=== PATIENT | male | born 1995 | race Caucasian/White ===

== ENCOUNTER 2019-11-16 22:14 | Emergency (ER) | payer BC ==
[2019-11-16 22:29] VITALS: RESP 18
[2019-11-16] MEDS ORDERED: FAMOTIDINE 20 MG/2 ML VIAL IV STA (22:52)
[2019-11-16] MEDS ORDERED: SODIUM CHLORIDE 0.9% 1,000 ML IV STA (22:52)
[2019-11-16] MEDS ORDERED: diphenhydrAMINE 50 MG/ML 1 ML VIAL IVP STA (22:52)
[2019-11-16] MEDS ORDERED: DEXAMETHASONE SOD PHOSPHATE 10 MG/ML 1 ML VIAL IV STA (22:52)
[2019-11-16] MEDS ORDERED: hydrOXYzine HCL 25 MG TAB PO STA (22:52)
--- NOTE | 2019-11-16 23:22 | ED ---
Allergic Reaction HPI - General Chief complaint: Allergic Reaction Stated complaint: Allergic Reaction Time Seen by Provider: 11/16/19 22:18 Source: patient, RN notes reviewed, old records reviewed Mode of arrival: ambulatory Limitations: no limitations - History of Present Illness Initial Comments: This is a 24-year-old male DF for evaluation patient Dese for evaluation regards to when he feels like maybe ALLERGIC reaction, patient has rash over body up both arms on his back on his chest with unknown exposure. Patient has felt a little feverish and warm but mainly his complaint is that shortness of breath his been going back to work and has had an significant work intolerance or exercise intolerance that he has noticed. Patient does even feel short of breath here sitting in his exam room. No medical history takes no medications nondrinker nonsmoker no significant sick contacts. No documented fevers per patient and no known travel history. MD Complaint: allergic reaction, other (Shortness of breath) -: days(s) Exposure: unknown Symptoms: rash (Bilateral arms chest and back), difficulty breathing (Patient does feel short of breath) Severity: mild Treatment Prior to Arrival: none, benadryl Previous Allergy History: none - Related Data Allergies Allergy/AdvReac Type Severity Reaction Status Date / Time No Known Allergies Allergy Verified 11/16/19 22:29 Review of Systems ROS Statement: Those systems with pertinent positive or pertinent negative responses have been documented in the HPI. ROS Other: All systems not noted in ROS Statement are negative. Past Medical History Past Medical History: No Reported History History of Any Multi-Drug Resistant Organisms: None Reported Past Surgical History: No Surgical Hx Reported Past Psychological History: No Psychological Hx Reported Smoking Status: Never smoker Past Alcohol Use History: None Reported Past Drug Use History: None Reported General Exam Limitations: no limitations General appearance: alert, in no apparent distress Head exam: Present: atraumatic, normocephalic, normal inspection Eye exam: Present: normal appearance, PERRL, EOMI. Absent: scleral icterus, conjunctival injection, periorbital swelling ENT exam: Present: normal exam, mucous membranes moist Neck exam: Present: normal inspection. Absent: tenderness, meningismus, lymphadenopathy Respiratory exam: Present: normal lung sounds bilaterally. Absent: respiratory distress, wheezes, rales, rhonchi, stridor Cardiovascular Exam: Present: regular rate, normal rhythm, normal heart sounds. Absent: systolic murmur, diastolic murmur, rubs, gallop, clicks GI/Abdominal exam: Present: soft, normal bowel sounds. Absent: distended, tenderness, guarding, rebound, rigid Extremities exam: Present: normal inspection, full ROM, normal capillary refill. Absent: tenderness, pedal edema, joint swelling, calf tenderness Back exam: Present: normal inspection Neurological exam: Present: alert, oriented X3, CN II-XII intact Psychiatric exam: Present: normal affect, normal mood Skin exam: Present: warm, dry, intact, normal color, other (Bilateral arm rash both anterior chest, rashes. pruritic). Absent: rash Course Vital Signs 11/16/19 11/16/19 11/16/19 22:23 22:28 23:37 Temperature 97.8 F 97.9 F Pulse Rate 77 68 Respiratory 18 18 18 Rate Blood Pressure 143/76 132/82 O2 Sat by Pulse 98 100 Oximetry - Reevaluation(s) Reevaluation #1: 11/16/19 23:22 Medical records reviewed Reevaluation #2: 11/16/19 23:22 Patient is showing symptomatic improvement Medical Decision Making - Medical Decision Making 24 male for ALLERGIC reaction for continued outpatient treatment with antihistamines, patient can be discharged home - Lab Data Result diagrams: 11/16/19 23:03 Lab Results 11/16/19 Range/Units 23:03 WBC 5.8 (3.8-10.6) k/uL RBC 5.42 (4.30-5.90) m/uL Hgb 15.7 (13.0-17.5) gm/dL Hct 46.9 (39.0-53.0) % MCV 86.6 (80.0-100.0) fL MCH 29.1 (25.0-35.0) pg MCHC 33.5 (31.0-37.0) g/dL RDW 11.7 (11.5-15.5) % Plt Count 187 (150-450) k/uL Neutrophils % 40 % Lymphocytes % 35 % Monocytes % 5 % Eosinophils % 15 % Basophils % 1 % Neutrophils # 2.3 (1.3-7.7) k/uL Lymphocytes # 2.1 (1.0-4.8) k/uL Monocytes # 0.3 (0-1.0) k/uL Eosinophils # 0.9 H (0-0.7) k/uL Basophils # 0.1 (0-0.2) k/uL - Radiology Data Radiology results: report reviewed (Chest x-ray is negative for acute disease), image reviewed Disposition Clinical Impression: Allergic reaction Disposition: HOME SELF-CARE Condition: Good Instructions (If sedation given, give patient instructions): Anaphylaxis (ED) Is patient prescribed a controlled substance at d/c from ED?: No Referrals: None,Stated [Primary Care Provider] - 1-2 days
[2019-11-16 23:29] LABS: Basophils # (A) 0.1 k/uL (0-0.2); Basophils % (A) 1 %; Eosinophils # (A) 0.9 k/uL (0-0.7); Eosinophils % (A) 15 %; HCT 46.9 % (39.0-53.0); HGB 15.7 gm/dL (13.0-17.5); Lymphocytes # (A) 2.1 k/uL (1.0-4.8); Lymphocytes % (A) 35 %; MCH 29.1 pg (25.0-35.0); MCHC 33.5 g/dL (31.0-37.0); MCV 86.6 fL (80.0-100.0); Mean Platelet Volume 7.6; Monocytes # (A) 0.3 k/uL (0-1.0); Monocytes % (A) 5 %; Neutrophils # (A) 2.3 k/uL (1.3-7.7); Neutrophils % (A) 40 %; Platelet Count 187 k/uL (150-450); RBC 5.42 m/uL (4.30-5.90); RDW 11.7 % (11.5-15.5); WBC 5.8 k/uL (3.8-10.6)
[2019-11-16 23:39] VITALS: BP 132/82; PULSE 68; TEMP 97.9
--- NOTE | 2019-11-16 23:41 | XR ---
EXAMINATION TYPE: XR chest 2V DATE OF EXAM: 11/16/2019 COMPARISON: NONE HISTORY: Chest pain TECHNIQUE: Frontal and lateral views of the chest are obtained. FINDINGS: There is no focal air space opacity. No evidence for pneumothorax. No pleural effusion. The cardiac silhouette size is within normal limits. The osseous structures are grossly intact. IMPRESSION: 1. No acute cardiopulmonary process.
[2019-11-16 23:53] LABS: ALT 24 U/L (4-49); AST 23 U/L (17-59); African American GFR (CKD) >90 (>60 ml/min/1.73 sqM); Albumin 4.7 g/dL (3.5-5.0); Alkaline Phosphatase 70 U/L (38-126); Anion Gap 8 mmol/L; Blood Urea Nitrogen 17 mg/dL (9-20); Calcium 9.3 mg/dL (8.4-10.2); Carbon Dioxide 29 mmol/L (22-30); Chloride 102 mmol/L (98-107); Glucose 98 mg/dL (74-99); Magnesium 2.2 mg/dL (1.6-2.3); Non-African American GFR(CKD) >90 (>60 ml/min/1.73 sqM); Phosphorus 3.9 mg/dL (2.5-4.5); Potassium 4.2 mmol/L (3.5-5.1); Sodium 139 mmol/L (137-145); Total Bilirubin 0.2 mg/dL (0.2-1.3); Total Protein 7.8 g/dL (6.3-8.2)
== END 2019-11-16 23:58 | disposition home or self-care (01) ==
LOC: EC 22:14
DX: T78.40XA Allergy, unspecified, initial encounter (principal)
CPT/HCPCS: 99285; 96374; 96375 ×2; 96361; 36415; 80053; 83735; 84100; 85025; 71046; J1200; J1100

== ENCOUNTER 2020-06-07 18:23 | Emergency (ER) | payer BC ==
[2020-06-07 18:29] VITALS: BP 166/73; PULSE 99; RESP 18; TEMP 98.2
--- NOTE | 2020-06-07 19:02 | ED ---
General Adult HPI - General Chief complaint: Extremity Injury, Lower Stated complaint: Finger injury Time Seen by Provider: 06/07/20 18:44 Source: patient Mode of arrival: ambulatory Limitations: no limitations - History of Present Illness Initial comments: 25-year-old male presenting to the emergency department with a chief complaint of finger injury. Patient states he was moving logs with his brother about one hour prior to arrival, when his finger got stuck between 2 logs. Patient reports most of the pain is located in the DIP of the right index finger. He reports limited range of motion in DIP specially with flexion due to pain. He denies any ecchymosis of the nail. He reports the pain is exacerbated with palpation to the region as well as bending of the finger. He denies any numbness or tingling. Denies taking medication to alleviate the symptoms. - Related Data Previous Rx's Medication Instructions Recorded Famotidine [Pepcid] 20 mg PO BID #20 tablet 11/16/19 hydrOXYzine HCL [Atarax] 25 mg PO TID PRN #15 tab 11/16/19 predniSONE 50 mg PO DAILY #5 tab 11/16/19 Allergies Allergy/AdvReac Type Severity Reaction Status Date / Time No Known Allergies Allergy Verified 06/07/20 18:29 Review of Systems ROS Statement: Those systems with pertinent positive or pertinent negative responses have been documented in the HPI. ROS Other: All systems not noted in ROS Statement are negative. Past Medical History Past Medical History: No Reported History History of Any Multi-Drug Resistant Organisms: None Reported Past Surgical History: No Surgical Hx Reported Past Psychological History: No Psychological Hx Reported Smoking Status: Never smoker Past Alcohol Use History: Occasional Past Drug Use History: None Reported General Exam Limitations: no limitations General appearance: alert, in no apparent distress Head exam: Present: atraumatic, normocephalic, normal inspection Eye exam: Present: normal appearance, PERRL, EOMI Pupils: Present: normal accommodation ENT exam: Present: normal exam, normal oropharynx, mucous membranes moist, TM's normal bilaterally, normal external ear exam Neck exam: Present: normal inspection, full ROM. Absent: tenderness Respiratory exam: Present: normal lung sounds bilaterally. Absent: respiratory distress, wheezes, rales Cardiovascular Exam: Present: regular rate, normal rhythm, normal heart sounds. Absent: systolic murmur, diastolic murmur Extremities exam: Present: tenderness (Tenderness at the site of injury), normal capillary refill, other (+2 ulnar and radial pulses bilaterally.). Absent: normal inspection (Injury to the DIP of the right index finger. No subungual hematoma. No overlying lacerations or puncture wounds), full ROM (Limited range of motion in the right index finger due to pain), pedal edema, joint swelling, calf tenderness Back exam: Present: normal inspection, full ROM. Absent: tenderness, CVA tenderness (R), CVA tenderness (L) Neurological exam: Present: alert, oriented X3 Psychiatric exam: Present: normal affect, normal mood Skin exam: Present: warm, dry, intact, normal color Course Vital Signs 06/07/20 18:25 Temperature 98.2 F Pulse Rate 99 Respiratory 18 Rate Blood Pressure 166/73 O2 Sat by Pulse 99 Oximetry Procedures - Orthopedic Splinting/Casting Injury #1 Side: right Upper Extremity Injury Location: finger Upper Extremity Immobilizer: finger (other) Medical Decision Making - Medical Decision Making 25-year-old male presenting to emergency Department with chief complaint of right index finger injury. Physical examination, patient is somewhat of range of motion and tenderness at the injury site although he is neurovascularly intact. X-ray reveals a small chip fracture or foreign body at the tuft of the right distal phalanx of the index finger. Clinically, this appears to be a small chip fracture because no foreign body can be detected on top of the finger. There is no visible puncture or laceration site where the suspect a foreign body appears in the x-ray. Finger splint was applied. Patient was offered analgesia, he declined. Patient was advised to alternate between Tylenol and Motrin for pain control. She was also advised to apply ice compresses to keep the finger elevated. Patient was advised to follow-up with bilingual customer service specialist. Strict return parameters were thoroughly discussed the patient is understanding and agreeable. Case discussed with physician. Disposition Clinical Impression: Finger fracture, Finger injury Disposition: HOME SELF-CARE Condition: Stable Instructions (If sedation given, give patient instructions): Finger Sprain (ED) Additional Instructions: Follow-up with an bilingual customer service specialist. Return to emergency department if symptoms worsen. Alternate between Tylenol and Motrin for pain control. Is patient prescribed a controlled substance at d/c from ED?: No Referrals: Jalen Mckeon DO [Primary Care Provider] - 1-2 days Makim,Eirc, MD [STAFF PHYSICIAN] - 1-2 days Time of Disposition: 19:31
--- NOTE | 2020-06-07 19:09 | XR ---
EXAMINATION TYPE: XR hand limited RT DATE OF EXAM: 06/07/2020 COMPARISON: NONE HISTORY: Pain TECHNIQUE: 2 views. Metacarpals are intact. There are no erosions. There is no subluxation. Joint spaces are fairly normal. There is 1 mm bony density at the tuft of the distal phalanx of the i ndex finger that could be a small chip fracture or foreign body. IMPRESSION: Small chip fracture or foreign body at the tuft of the distal phalanx of the index finger .
[2020-06-07] MEDS ORDERED: ACET/COD 300 MG/30 MG STARTER PACK 6 TAB BTL PO STA (19:37)
== END 2020-06-07 19:51 | disposition home or self-care (01) ==
LOC: EC 18:23
DX: S62.630A Displaced fracture of distal phalanx of right index finger, initial encounter for closed fracture (principal); X50.0XXA Overexertion from strenuous movement or load, initial encounter
CPT/HCPCS: 99283